=== PATIENT | male | born 1940 | race Caucasian/White ===

== ENCOUNTER 2017-09-29 05:00 | Inpatient (IN) ==
[2017-09-29] MEDS ORDERED: Aspirin 81 MG TAB.CHEW PO ONE (05:01)
[2017-09-29] MEDS ORDERED: Nitroglycerin 0.4 MG TAB.SUBL SL ONE (05:01)
[2017-09-29 05:25] LABS: Basophils # 0.1 K/mcL (0.0-0.2); Basophils % 0.8 %; Eosinophils # 0.4 K/mcL (0.0-0.6); Eosinophils % 3.8 %; Hemoglobin 13.6 g/dL (12.9-16.9); Immature Granulocytes % 0.3 % (0-4); Lymphocytes # 1.5 K/mcL (0.6-4.6); Lymphocytes % 13.8 %; Mean Corpuscular HGB Conc 33.2 g/dL (31.6-35.5); Mean Corpuscular Hemoglobin 30.2 pg (28.0-33.3); Mean Corpuscular Volume 90.9 fL (83.0-100.0); Monocytes # 0.6 K/mcL (0.0-1.3); Monocytes % 5.6 %; Neutrophils # 7.9 K/mcL (1.6-8.9); Platelet Count 285 K/mcL (140-400); Red Blood Count 4.51 M/mcL (4.19-5.50); Red Cell Distribution Width 13.7 % (11.5-14.5); Segmented Neutrophils % 75.7 %
[2017-09-29 05:32] LABS: INR 1.1; Prothrombin Time 11.6 Seconds (9.4-12.1)
[2017-09-29 05:44] LABS: BUN/Creatinine Ratio 19 (6-26); Blood Urea Nitrogen 22 mg/dL (8-23); Calcium 9.1 mg/dL (8.6-10.3); Carbon Dioxide 21 mEq/L (23-29); Chloride 108 mEq/L (98-107); Glucose 121 mg/dL (70-105); Lipase 13 Units/L (11-82); Osmolality,Calculated 293 (280-300); Potassium 4.1 mEq/L (3.5-5.1); Sodium 139 mEq/L (136-145); Troponin I < 0.03 ng/mL (< 0.04); eGFR For African Americans > 60 (> 60); eGFR For Non-African Americans > 60 (> 60)
--- NOTE | 2017-09-29 05:47 | Emergency Department Note ---
Disposition Clinical Impression: Chest pain Qualifiers: Chest pain type: unspecified Qualified Code(s): R07.9 - Chest pain, unspecified Disposition: Admitted As Inpatient Condition: Good Referrals: Fabby Parmar CNP [Primary Care Provider] - Forms: ED Satisfaction Letter Time of Disposition: 06:41 General Adult HPI - General Chief complaint: ED Chest Pain Stated complaint: CP Time Seen by Provider: 09/29/17 05:01 Source: patient, family Limitations: no limitations Nursing Notes Reviewed: Yes Vital Signs Reviewed: Yes - History of Present Illness HPI Narrative: Patient woke up around 2 AM. States he felt very lightheaded. Thought He was going to pass out. Likens this to feeling that he was going to . Also reporting chest pain in the center of his chest. Did take one nitroglycerin and a full aspirin. States the nitroglycerin helped ease the chest pain. States this chest pain is gone now at this time. Still feeling fatigued. Pain Scale: 0 - Related Data Home Medications Medication Instructions Recorded Confirmed Aspirin 81 mg PO DAILY 04/04/16 09/29/17 Benazepril HCl [Lotensin] 40 mg PO BID 04/04/16 09/29/17 Carvedilol 12.5 mg PO BID 04/04/16 09/29/17 Clopidogrel [Plavix] 75 mg PO DAILY 04/04/16 09/29/17 Famotidine [Heartburn Prevention] 20 mg PO BID 04/04/16 09/29/17 Furosemide [Lasix] 20 mg PO DAILY 04/04/16 09/29/17 Nitroglycerin [Nitrostat] 0.4 mg SL AD PRN 04/04/16 09/29/17 amLODIPine [Norvasc] 5 mg PO DAILY 04/04/16 09/29/17 [place]-3/Dha/Epa/Fish Oil [Fish Oil 1 each PO DAILY 11/11/16 09/29/17 1,000 mg Softgel] Cholecalciferol (Vitamin D3) 5,000 unit PO DAILY 09/29/17 09/29/17 [Vitamin D] Vitamin E 400 unit PO DAILY 09/29/17 09/29/17 Allergies Allergy/AdvReac Type Severity Reaction Status Date / Time Ggi[place]ock-Tmt-Ulw Reductase Allergy Rash Verified 04/04/16 12:57 Inhibitor [Statins] Penicillins AdvReac Nausea Verified 04/04/16 12:57 steroids AdvReac Irritable Uncoded 11/11/16 07:41 All systems ED: reviewed and negative except as stated. Constitutional: Denies: fever, chills ENT ED: Denies: congestion Cardiovascular: Reports: chest pain. Denies: palpitations, dyspnea on exertion , syncope Respiratory: Denies: cough, dyspnea Gastrointestinal: Reports: abdominal pain (Occasional not this time). Denies: nausea, vomiting, diarrhea, hematemesis, melena, hematochezia Past Medical History - Past Medical History Attestation: Yes The following information was validated with the patient. Source: patient Medical history: Reports: arthritis, COPD, coronary artery disease, GERD, hypertension, myocardial infarction, other Surgical history: Reports: appendectomy, coronary bypass (CABG) Psychiatric history: Reports: no psych history - Social History Smoking Status: Former smoker Alcohol use: Reports: none Drug use: Reports: none Physical Exam - General Limitations: no limitations General appearance: alert, in no apparent distress - Head Head exam: atraumatic, normocephalic, normal inspection - Eye Eye exam: Present: normal appearance, PERRL, EOMI - ENT ENT exam: normal exam, normal oropharynx, mucous membranes moist - Neck Neck exam: Present: normal inspection, full ROM, trachea midline - Chest Chest inspection: Present: normal inspection, symmetric chest wall rise - Respiratory Respiratory exam: Present: normal lung sounds bilaterally. Absent: respiratory distress, accessory muscle use - Cardiovascular Cardiovascular exam: Present: regular rate, normal rhythm, normal heart sounds - Abdominal Exam Abdominal exam: Present: soft, Non-Tender. Absent: tenderness, distention, guarding, rebound, rigidity - Extremities Exam Extremities exam: Present: normal inspection, full ROM. Absent: tenderness, pedal edema - Back Exam Back exam: Present: normal inspection, full ROM. Absent: tenderness - Neurological Exam Neurological exam: Present: alert, oriented X3 - Psychiatric Psychiatric exam: Present: normal affect, normal mood - Skin Skin exam: Present: warm, dry, intact, normal color. Absent: rash, cyanosis, diaphoresis Course Course Narrative: Male patient presenting to the emergency department complaining of an episode of chest pain. He states this all started around 245 this morning. He woke up from sleep and sit up. States that he felt like he was "going to ." I questioned him as if he felt like he was going to pass out or was lightheaded he stated yes however he did feel like he was actually going to . Patient states that he was dizzy on awakening and had some ringing in his ears. He denies overuse of aspirin. States he does take a baby aspirin every day he was also given a full aspirin while he was at home. Patient does have a cardiac history inclusive of a CABG with a stent placed afterwards. He subsequently had another cardiac catheter and was told that the stents had "collapsed." Patient sees Dr. Gtz here. Patient states he did end up noticing that he had a substernal chest pain. He states it did not radiate anywhere. No associated shortness of breath. Patient reports that he was not feeling well yesterday and he was more tired than normal. He states he ended up going to sleep early due to his fatigue. He denies any nausea vomiting or abdominal pain. He does state he has a history of acid reflux and has been taking Pepcid. This is helped his abdominal pain. He has no pain at this time. She also denies any chest pain currently. He is resting comfortably. Lung sounds are clear heart tones are normal. He does have a midsternal scar. Patient is a high-risk cardiac patient is CABG and stents. Patient's troponin is negative and chest x-ray is normal. We will admit patient for ACS rule out. - Reevaluation(s) Reevaluation #1: While in the room discussing admission with the patient he states he is having chest pain again. We did a repeat EKG. It shows a sinus bradycardia at a rate of 58. MD interval is 161. Castration is 139. QT is 488. QTC is 484. Patient has the right bundle branch block that was discussed on the previous EKG. No findings suggestive of a acute ST elevation. We will place an inch of Nitropaste on the patient and admit him. Time: 06:39 - Consultations Consultation #1: Pt accepeted by Dr Dubon in stable condition. Time: 06:38 Vital Signs Temperature 97.7 F 09/29/17 05:01 Pulse Rate 65 09/29/17 05:01 Respiratory Rate 20 09/29/17 05:01 Blood Pressure 171/99 09/29/17 05:01 O2 Sat by Pulse Oximetry 97 09/29/17 05:01 Temperature 97.7 F 09/29/17 05:01 Pulse Rate 60 09/29/17 06:30 Respiratory Rate 18 09/29/17 06:30 Blood Pressure 137/70 09/29/17 06:30 O2 Sat by Pulse Oximetry 96 09/29/17 06:30 Oxygen Delivery Oxygen Delivery Room Air Medical Decision Making - Medical Records Medical records reviewed: Yes I reviewed the patient's medical records. - Lab Data Lab results reviewed: Yes I reviewed the patient's lab results. Result diagrams: 09/29/17 05:10 09/29/17 05:10 Lab Results 09/29/17 09/29/17 09/29/17 Range/Units 05:10 05:10 05:10 WBC 10.5 (4.3-11.1) K/mcL RBC 4.51 (4.19-5.50) M/mcL Hgb 13.6 (12.9-16.9) g/dL Hct 41.0 (37.5-50.1) % MCV 90.9 (83.0-100.0) fL MCH 30.2 (28.0-33.3) pg MCHC 33.2 (31.6-35.5) g/dL RDW 13.7 (11.5-14.5) % Plt Count 285 (140-400) K/mcL MPV 11.0 (9.4-12.4) fL Immature Gran % 0.3 (0-4) % Seg Neutrophils % 75.7 % Lymphocytes % 13.8 % Monocytes % 5.6 % Eosinophils % 3.8 % Basophils % 0.8 % Neutrophils # 7.9 (1.6-8.9) K/mcL Lymphocytes # 1.5 (0.6-4.6) K/mcL Monocytes # 0.6 (0.0-1.3) K/mcL Eosinophils # 0.4 (0.0-0.6) K/mcL Basophils # 0.1 (0.0-0.2) K/mcL PT 11.6 (9.4-12.1) Seconds INR 1.1 APTT 29.0 (26.0-36.0) Seconds Sodium (136-145) mEq/L Potassium (3.5-5.1) mEq/L Chloride (98-107) mEq/L Carbon Dioxide (23-29) mEq/L BUN (8-23) mg/dL Creatinine (0.70-1.30) mg/dL Est GFR ( Amer) (> 60) Est GFR (Non-Af Amer) (> 60) BUN/Creatinine Ratio (6-26) Glucose (70-105) mg/dL Calculated Osmolality (280-300) Calcium (8.6-10.3) mg/dL Troponin I (< 0.04) ng/mL B-Natriuretic Peptide 47 (Less than 100) pg/mL Lipase (11-82) Units/L 09/29/17 Range/Units 05:10 WBC (4.3-11.1) K/mcL RBC (4.19-5.50) M/mcL Hgb (12.9-16.9) g/dL Hct (37.5-50.1) % MCV (83.0-100.0) fL MCH (28.0-33.3) pg MCHC (31.6-35.5) g/dL RDW (11.5-14.5) % Plt Count (140-400) K/mcL MPV (9.4-12.4) fL Immature Gran % (0-4) % Seg Neutrophils % % Lymphocytes % % Monocytes % % Eosinophils % % Basophils % % Neutrophils # (1.6-8.9) K/mcL Lymphocytes # (0.6-4.6) K/mcL Monocytes # (0.0-1.3) K/mcL Eosinophils # (0.0-0.6) K/mcL Basophils # (0.0-0.2) K/mcL PT (9.4-12.1) Seconds INR APTT (26.0-36.0) Seconds Sodium 139 (136-145) mEq/L Potassium 4.1 (3.5-5.1) mEq/L Chloride 108 H (98-107) mEq/L Carbon Dioxide 21 L (23-29) mEq/L BUN 22 (8-23) mg/dL Creatinine 1.17 (0.70-1.30) mg/dL Est GFR ( Amer) > 60 (> 60) Est GFR (Non-Af Amer) > 60 (> 60) BUN/Creatinine Ratio 19 (6-26) Glucose 121 H (70-105) mg/dL Calculated Osmolality 293 (280-300) Calcium 9.1 (8.6-10.3) mg/dL Troponin I < 0.03 (< 0.04) ng/mL B-Natriuretic Peptide (Less than 100) pg/mL Lipase 13 (11-82) Units/L - Radiology Data Radiology results reviewed: Yes I reviewed the patient's radiology results. - EKG Data EKG #1 EKG attestation: Yes I reviewed and interpreted this EKG. EKG results narrative: Normal sinus rhythm at a rate of 63. MD interval is 198. Castration is 140. QT is 471. QTC is 478. Patient does have a right bundle branch block. This was on the previous EKG. No signs of acute ischemia. No significant change from the previous EKG dated 11/29/2013. EKG #2 EKG attestation: Yes I reviewed and interpreted this EKG. EKG results narrative: sinus bradycardia at a rate of 58. MD interval is 161. Castration is 139. QT is 488. QTC is 484. Patient has the right bundle branch block that was discussed on the previous EKG. No findings suggestive of a acute ST elevation. Attestation Statement - Attestation Attestation: I examined this patient and my medical decision-making was reviewed with the Resident Physician. I agree with the documented findings, disposition and treatment plan as described except to the extent set forth below. Chest pain, history of significant coronary artery disease. Pain was atypical from previous episodes of pain. Patient has several previous stents. He is medically maximized however pain today was associated with impending doom. Patient will be admitted for further management and started on nitroglycerin. Patient did take asa at home.
[2017-09-29] MEDS ORDERED: Ondansetron 4 MG/2 ML VIAL IVP STA (06:24)
[2017-09-29] MEDS ORDERED: Nitroglycerin 1 INCH/GM PACKET TP ONE (06:36)
[2017-09-29] MEDS ORDERED: Acetaminophen 325 MG TABLET PO PRN (06:36)
[2017-09-29] MEDS ORDERED: Naloxone 0.4 MG/ML INJ IVP PRN ×2 (06:36→08:06)
[2017-09-29] MEDS ORDERED: Nitroglycerin 0.4 MG TAB.SUBL SL PRN (08:08)
--- NOTE | 2017-09-29 08:15 | Internal Med History&Physical ---
Date of Encounter: 09/29/17 Time of Encounter: 08:12 Internal Medicine - H&P: HPI Chief complaint: chest pain Admitted From: Emergency Dept Plans for Post Hospital Care: Home History of present illness: Mr. Urban is a 76 year old male background history of hypertension, coronary artery disease, previous myocardial infarction, previous coronary artery bypass graft, underwent cardiac catheterization in 2017. Patient woke up at 2 in the morning and was complaining of excruciating pain on his left side of the chest. This pain was left precordial region in terms of location and was radiating to his jaw along with the left arm. Patient claims that he felt like he is going to pass out. Patient was concerned about this sudden onset of pain and that was the reason he decided for further evaluation. Patient denies shortness of breath, nausea, vomiting, abdominal pain, dizziness and diarrhea. Workup in the emergency room: Basic labs were drawn. Chest x-ray was done. Heart score: 4 Reason for admission: Chest pain to rule out ACS and a very high risk patient. Family history: Noncontributory Past Med Surg Social Fam HX - Past Medical History Medical history: arthritis, COPD, coronary artery disease, GERD, hypertension, myocardial infarction, other Psychiatric history: no psych history - Past Surgical History Surgical History: appendectomy, coronary bypass (CABG) - Social History Smoking Status: Former smoker Alcohol use: none Drug use: none Internal Medicine - H&P: Meds Aspirin 81 mg PO DAILY 04/04/16 [History] Benazepril HCl [Lotensin] 40 mg PO BID 04/04/16 [History] Carvedilol 12.5 mg PO BID 04/04/16 [History] Clopidogrel [Plavix] 75 mg PO DAILY 04/04/16 [History] Famotidine [Heartburn Prevention] 20 mg PO BID 04/04/16 [History] Furosemide [Lasix] 20 mg PO DAILY 04/04/16 [History] Nitroglycerin [Nitrostat] 0.4 mg SL AD PRN 04/04/16 [History] amLODIPine [Norvasc] 5 mg PO DAILY 04/04/16 [History] [place]-3/Dha/Epa/Fish Oil [Fish Oil 1,000 mg Softgel] 1 tab PO DAILY 11/11/16 [ History] Cholecalciferol (Vitamin D3) [Vitamin D] 5,000 unit PO DAILY 09/29/17 [History] Vitamin E 400 unit PO DAILY 09/29/17 [History] 3 Allergy/AdvReac Type Severity Reaction Status Date / Time Dnkzpsb-Msp-Uiw Reductase Allergy Rash Verified 09/29/17 06:58 Inhibitor [Statins] Penicillins AdvReac Nausea Verified 09/29/17 06:58 steroids AdvReac Irritable Uncoded 11/11/16 07:41 All Systems PM: A 10-system review of systems was performed and is negative for pertinent findings except as documented above in the HPI. - Constitutional Constitutional: no chills, no fever(s), no night sweats - EENT Eyes: no change in vision, no discharge, no pain, no photophobia Ears: no ear discharge, no ear pain, no tinnitus Nose, mouth and throat: no dysphagia, no nasal discharge, no neck pain, no sore throat - Cardiovascular Cardiovascular ROS IM: chest pain, no diaphoresis, no dyspnea, no lightheadedness, no palpitations, no syncope - Respiratory Respiratory: no cough, no dyspnea, no wheezing, no excessive phlegm production - Gastrointestinal Gastrointestinal: no abdominal pain, no diarrhea, no hematemesis, no hematochezia, no melena, no nausea, no vomiting - Musculoskeletal Musculoskeletal ROS IM: no numbness, no tingling - Integumentary Integumentary IM: no rash, no unusual bruising - Neurological Neurological ROS: no confusion, no convulsions, no focal weakness, no numbness, no tingling, no tremor(s) - Hematologic/Lymphatic Hematologic/Lymphatic: no easy bruising - Constitutional Vitals: Temp Pulse Resp BP Pulse Ox 97.7 F 58 14 142/73 92 09/29/17 05:01 09/29/17 06:59 09/29/17 07:32 09/29/17 07:32 09/29/17 06:59 General appearance: Present: A&O X 3, pleasant, no acute distress, answers questions appropriately - Head Head exam: Present: atraumatic, normocephalic - Eye Eye exam: Present: PERRL, conjuntiva pink, sclera anicteric Pupils: Present: PERRL - Neck Neck exam general surgery: Present: supple, trachea midline. Absent: lymphadenopathy - Respiratory Respiratory exam: Present: CTAB. Absent: accessory muscle use, rales, rhonchi, wheezes - Cardiovascular Cardiovascular exam: Present: RRR, +S1, +S2. Absent: diastolic murmur, gallop, rubs, systolic murmur - GI/Abdominal GI/Abdominal exam: Present: normal bowel sounds, soft, no peritoneal signs. Absent: distended, tenderness - Extremities Exam Extremities exam: Present: warm, radial pulses palpable and symmetrical. Absent : calf tenderness, cyanotic, pedal edema - Neurological Exam Neurological exam: Present: CN II-XII intact, oriented X3, no focal deficits. Absent: pronater drift, facial droop, speech deficit - Skin Skin exam: Present: dry, intact Internal Med - H&P Results - Labs CBC & Chem 7: 09/29/17 05:10 09/29/17 05:10 - Assessment and plan (1) Chest pain Current Visit: Yes Status: Acute Assessment and plan: 76/male Admitted with chest pain. CASH score: 3. Assessment: Chest pain to rule out ACS. Complex previous cardiac. Sanchez: Admit as observation. Cardiac diet. Cycle troponin. Echocardiogram. Labs tomorrow morning. Aspirin/beta blockers/statin/nitroglycerin. Please consider long-term nitroglycerin if appropriate Please consider cardiology evaluation if any of the tests are abnormal. I have examined this patient in the emergency department room #21. Patient's significant other was at bedside. Plan of care explained to the patient and his significant other. They verbalize understanding. Qualifiers: Chest pain type: precordial pain Qualified Code(s): R07.2 - Precordial pain (2) Coronary artery disease Current Visit: Yes Status: Acute Assessment and plan: Patient is known to have a coronary artery bypass graft surgery in year 1999. He underwent cardiac catheterization in 2017. There stents placed in his bypass graft. Qualifiers: Coronary Disease-Associated Artery/Lesion type: bypass graft [place] vs. transplanted heart: pala heart Associated angina: with stable angina Qualified Code(s): I25.708 - Atherosclerosis of coronary artery bypass graft(s) , unspecified, with other forms of angina pectoris (3) Hypertension Current Visit: Yes Status: Acute Assessment and plan: Patient is known to have essential hypertension. At the point of examination his blood pressure is acceptable range. We will resume his home medication for hypertension. We will closely monitor his blood pressure throughout this hospital stay. Qualifiers: Hypertension type: essential hypertension Qualified Code(s): I10 - Essential (primary) hypertension (4) COPD (chronic obstructive pulmonary disease) Current Visit: Yes Status: Acute Assessment and plan: And is a long-term smoker. Patient is known to have a stable COPD. At this point is not in exacerbation. We will closely monitor his respiratory status. Qualifiers: COPD type: unspecified COPD Qualified Code(s): J44.9 - Chronic obstructive pulmonary disease, unspecified (5) DVT prophylaxis Current Visit: Yes Status: Acute Assessment and plan: Lovenox Medical decision making: This patient has a moderate to severe risk of worsening in spite of being on appropriate medication due to the underlying chronic complex medical condition. - Time Spent With Patient Total time spent is greater than 50% in coordination of care (as documented) at patient's floor/unit and/or counseling patient:
[2017-09-29] MEDS ORDERED: Lisinopril 20 MG TABLET PO SCH (09:00)
[2017-09-29] MEDS ORDERED: Famotidine 20 MG TABLET PO SCH (09:00)
[2017-09-29] MEDS ORDERED: amLODIPine 5 MG TABLET PO SCH (09:00)
[2017-09-29] MEDS ORDERED: NON-FORMULARY MEDICATION 1 EACH EACH (Omega-3/Dha/Epa/Fish Oil [Fish Oil 1,000 Mg Softgel] PO SCH (09:00)
[2017-09-29] MEDS: Aspirin 81 MG TAB.CHEW PO SCH (10:10)
[2017-09-29] MEDS: Furosemide 20 MG TABLET PO SCH (10:11)
[2017-09-29] MEDS: Cholecalciferol (D-3) 1,000 UNIT TABLET PO SCH (10:12)
[2017-09-29] MEDS: Famotidine 20 MG TABLET PO SCH (10:12)
[2017-09-29] MEDS: amLODIPine 5 MG TABLET PO SCH (20:20)
[2017-09-30] MEDS ORDERED: *HR* Heparin 5,000 UNIT/ML VIAL IVP ONE (00:28)
[2017-09-30] MEDS ORDERED: *HR* Heparin 5,000 UNIT/ML VIAL IVP PRN ×2 (00:28)
--- NOTE | 2017-09-30 00:31 | Event Note ---
Date of Encounter: 09/30/17 Time of Encounter: 00:30 Patient here with chest pain. Was paged about trop of .38. Previously normal x3. No chest pain currently. Will start heparin drip. NPO. repeat trop 6 hours from now. c/s cardiology. Patient is on ASA/plavix/BB
[2017-09-30 01:00] LABS: Hematocrit 37.9 % (37.5-50.1); Hemoglobin 12.6 g/dL (12.9-16.9); Mean Corpuscular HGB Conc 33.2 g/dL (31.6-35.5); Mean Corpuscular Hemoglobin 30.3 pg (28.0-33.3); Mean Corpuscular Volume 91.1 fL (83.0-100.0); Mean Platelet Volume 11.1 fL (9.4-12.4); Platelet Count 243 K/mcL (140-400); Red Blood Count 4.16 M/mcL (4.19-5.50); Red Cell Distribution Width 13.6 % (11.5-14.5)
[2017-09-30 01:09] LABS: INR 1.1; Prothrombin Time 12.1 Seconds (9.4-12.1)
[2017-09-30 01:11] LABS: Activated Partial Thrombo Time 29.7 Seconds (26.0-36.0)
[2017-09-30] MEDS: Heparin 25,000 UNIT/500 ML D5W 25,000 UNIT/500 ML BAG IVC SCH (01:14)
[2017-09-30] MEDS ORDERED: *HR* Enoxaparin 40 MG/0.4 ML SYRINGE SQ SCH (06:00)
[2017-09-30] MEDS ORDERED: *HR* Enoxaparin 30 MG/0.3 ML SYRINGE SQ SCH (06:00)
[2017-09-30 06:13] LABS: Basophils # 0.1 K/mcL (0.0-0.2); Basophils % 0.9 %; Eosinophils # 0.5 K/mcL (0.0-0.6); Eosinophils % 7.4 %; Hematocrit 38.7 % (37.5-50.1); Hemoglobin 12.7 g/dL (12.9-16.9); Immature Granulocytes % 0.3 % (0-4); Lymphocytes # 2.3 K/mcL (0.6-4.6); Lymphocytes % 35.5 %; Mean Corpuscular HGB Conc 32.8 g/dL (31.6-35.5); Mean Corpuscular Hemoglobin 30.4 pg (28.0-33.3); Mean Corpuscular Volume 92.6 fL (83.0-100.0); Mean Platelet Volume 11.5 fL (9.4-12.4); Monocytes # 0.5 K/mcL (0.0-1.3); Monocytes % 7.7 %; Neutrophils # 3.1 K/mcL (1.6-8.9); Platelet Count 224 K/mcL (140-400); Red Blood Count 4.18 M/mcL (4.19-5.50); Red Cell Distribution Width 13.8 % (11.5-14.5); Segmented Neutrophils % 48.2 %
--- NOTE | 2017-09-30 06:35 | Electrocardiograph Report ---
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
--- NOTE | 2017-09-30 06:36 | Electrocardiograph Report ---
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
[2017-09-30 06:38] LABS: Alanine Aminotransferase 13 Units/L (7-52); Albumin 3.5 g/dL (3.5-5.7); Albumin/Globulin Ratio 1.3 (1.1-2.2); Alkaline Phosphatase 60 Units/L (34-104); Aspartate Amino Transferase 14 Units/L (13-39); BUN/Creatinine Ratio 15 (6-26); Bilirubin,Total 0.5 mg/dL (0.3-1.0); Blood Urea Nitrogen 17 mg/dL (8-23); Calcium 8.5 mg/dL (8.6-10.3); Carbon Dioxide 26 mEq/L (23-29); Chloride 109 mEq/L (98-107); Chol/HDL Ratio 5.7 (0-4.9); Cholesterol 183 mg/dL (< 200); Globulin 2.6 g/dL (2.4-3.5); Glucose 100 mg/dL (70-105); HDL Cholesterol 32 mg/dL (40-59); LDL Cholesterol,Calculated 129 mg/dL (0-99); Osmolality,Calculated 296 (280-300); Phosphorous 3.4 mg/dL (2.7-4.5); Potassium 3.6 mEq/L (3.5-5.1); Sodium 142 mEq/L (136-145); Total Protein 6.1 g/dL (6.4-8.9); Triglycerides 108 mg/dL (< 150); eGFR For African Americans > 60 (> 60); eGFR For Non-African Americans > 60 (> 60)
[2017-09-30 07:41] LABS: INR 1.1; Prothrombin Time 12.1 Seconds (9.4-12.1)
[2017-09-30 07:44] LABS: Activated Partial Thrombo Time 71.2 Seconds (26.0-36.0)
[2017-09-30] MEDS: Famotidine 20 MG TABLET PO SCH (09:13)
[2017-09-30] MEDS: Furosemide 20 MG TABLET PO SCH (09:13)
[2017-09-30] MEDS: Aspirin 81 MG TAB.CHEW PO SCH (09:13)
[2017-09-30] MEDS: Lisinopril 20 MG TABLET PO SCH (09:13)
[2017-09-30] MEDS: Cholecalciferol (D-3) 1,000 UNIT TABLET PO SCH (09:13)
--- NOTE | 2017-09-30 09:31 | Internal Med Progress Note ---
Date of Encounter: 09/30/17 Time of Encounter: 09:29 - Assessment and plan (1) Chest pain Current Visit: Yes Status: Acute Assessment and plan: Denied any more CP His trop peaked at @ 0.38 Now trending down No ischemic changes on EKG He does have intermittent CP for a while now He would get benefit with [facility] since he is high risk pt with tripple vessel disease Cont heparin gtt for now Cont ASA, Plavix, BB and ACEI Cont NPO until card eval Patient does need to stay in the hospital more than 2 midnights due to his complex medical problem. So we will change him to full admission today. I did review my colleague Dr. Stiles's H & P including HPI, PMH, PSH, FH, SH, and ROS no changes noticed Qualifiers: Chest pain type: precordial pain Qualified Code(s): R07.2 - Precordial pain (2) NSTEMI (non-ST elevated myocardial infarction) Current Visit: Yes Status: Acute (3) Coronary artery disease Current Visit: Yes Status: Acute Assessment and plan: Patient is known to have a coronary artery bypass graft surgery in year 1999. He underwent cardiac catheterization in 2017. There stents placed in his bypass graft resumed all home meds Qualifiers: Coronary Disease-Associated Artery/Lesion type: bypass graft [place] vs. transplanted heart: [place] heart Associated angina: with stable angina Qualified Code(s): I25.708 - Atherosclerosis of coronary artery bypass graft(s) , unspecified, with other forms of angina pectoris (4) Hypertension Current Visit: Yes Status: Acute Assessment and plan: stable with current meds resumed all home meds Qualifiers: Hypertension type: essential hypertension Qualified Code(s): I10 - Essential (primary) hypertension (5) DVT prophylaxis Current Visit: Yes Status: Acute Assessment and plan: on heparin gtt (6) COPD (chronic obstructive pulmonary disease) Current Visit: Yes Status: Acute Assessment and plan: chronic COPD. not in exacerbation. cont home INH regimen Qualifiers: COPD type: unspecified COPD Qualified Code(s): J44.9 - Chronic obstructive pulmonary disease, unspecified - Time Spent With Patient Total time spent is greater than 50% in coordination of care (as documented) at patient's floor/unit and/or counseling patient: - Subjective Interval history: Mr. Urban is a 76 year old male background history of hypertension, coronary artery disease, previous myocardial infarction, previous coronary artery bypass graft, underwent cardiac catheterization in 2017 showed tripple vessel disease, s/p CABG 2/4 patent bypass grafts pt now presented to ER y/d with Left side chest pain radiating to his shoulder and back. He did c/o intermittent CP lately from last 2-3 months. 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 Checked his serial troponin, which peaked at 0.38. He denied any active CP now. Currently on Heparin gtt. No N/V. No SOB - Constitutional Vitals: Temp Pulse Resp BP Pulse Ox 97.5 F L 60 17 157/77 97 09/30/17 07:42 09/30/17 07:42 09/30/17 07:42 09/30/17 07:42 09/30/17 09:17 General appearance: Present: A&O X 3, pleasant, no acute distress, answers questions appropriately - Head Head exam: Present: atraumatic, normal inspection - Neck Neck exam general surgery: Present: supple - Respiratory Respiratory exam: Present: decreased breath sounds. Absent: rales, respiratory distress, rhonchi, wheezes - Cardiovascular Cardiovascular exam: Present: RRR, +S1, +S2. Absent: tachycardia - GI/Abdominal GI/Abdominal exam: Present: soft. Absent: rebound, rigid - Extremities Exam Extremities exam: Absent: calf tenderness, pedal edema, tenderness - Back Exam Back exam: Absent: CVA tenderness (L), CVA tenderness (R) - Neurological Exam Neurological exam: Present: alert, oriented X3 - Psychiatric Psychiatric exam: Present: normal affect, normal mood - Skin Skin exam: Absent: rash Internal Medicine: Result - Labs CBC & Chem 7: 09/30/17 05:19 09/30/17 05:19 Labs: Short CBC 09/30/17 09/30/17 Range/Units 00:40 05:19 WBC 6.8 6.5 (4.3-11.1) K/mcL Hgb 12.6 L 12.7 L (12.9-16.9) g/dL Hct 37.9 38.7 (37.5-50.1) % Plt Count 243 224 (140-400) K/mcL Neutrophils # 3.1 (1.6-8.9) K/mcL BMP 09/30/17 05:19 Sodium 142 Potassium 3.6 Chloride 109 H Carbon Dioxide 26 BUN 17 Creatinine 1.15 Glucose 100 Calcium 8.5 L Cardiac Enzymes 09/29/17 09/29/17 09/29/17 Range/Units 10:59 16:41 23:18 Troponin I < 0.03 0.03 0.38 H* (< 0.04) ng/mL 09/30/17 Range/Units 05:19 Troponin I 0.04 H* (< 0.04) ng/mL Liver Function 09/30/17 Range/Units 05:19 Total Bilirubin 0.5 (0.3-1.0) mg/dL AST 14 (13-39) Units/L ALT 13 (7-52) Units/L Alkaline Phosphatase 60 (34-104) Units/L Albumin 3.5 (3.5-5.7) g/dL - ABG Interpretation ABG results: PT/INR, D-dimer PT 12.1 Seconds (9.4-12.1) 09/30/17 07:14 - Impressions Impressions Echocardiogram 09/29/17 08:09 Impressions: LVEF 65-70%. Mild pulmonary hypertension. Mild left ventricular diastolic dysfunction. No significant valvular dysfunction. Left Ventricular Wall Motion: Rest Echo Findings The apex, apical inferior, mid inferior, basal inferior, apical anterior, mid anterior, basal anterior, apical septal, mid inferior septal, basal inferior septal, apical lateral, mid anterior lateral, basal anterior lateral, mid anterior septal, mid inferior lateral, basal anterior septal and basal inferior lateral marx were hyperkinetic. Findings: Study Quality * Technically adequate exam. Right Ventricle * Normal right ventricular structure and function. Right Atrium * Normal right atrial size. Interatrial Septum * No evidence of PFO by color Doppler. Aorta * Normally sized aortic root. Pericardium * The pericardium appears normal. Left Atrium * Mildly dilated left atrium. Tricuspid Valve * No tricuspid stenosis. * Mild tricuspid regurgitation. * Estimated RVSP is 36 mmHg. * Mild pulmonary hypertension. Pulmonic Valve * No pulmonic stenosis. * Mild pulmonic regurgitation. Aortic Valve * Trileaflet aortic valve. * Moderately calcified aortic valve leaflets. * No aortic regurgitation. * No aortic stenosis. Left Ventricle * LVEF 65-70%. * Mild left ventricular diastolic dysfunction. Mitral Valve * No mitral stenosis. * Trace mitral regurgitation. * Mildly calcified mitral valve leaflets. IVC * Normal IVC dimensions and inspiratory collapse. Consult Discharge Plan - Plan Referrals: Fabby Parmar, INSERTER OPERATOR [Primary Care Provider] -
[2017-09-30] MEDS: amLODIPine 5 MG TABLET PO SCH (21:41)
[2017-10-01] MEDS: Heparin 25,000 UNIT/500 ML D5W 25,000 UNIT/500 ML BAG IVC SCH (01:03)
[2017-10-01 05:24] LABS: Basophils # 0.1 K/mcL (0.0-0.2); Basophils % 0.8 %; Eosinophils # 0.4 K/mcL (0.0-0.6); Eosinophils % 6.9 %; Hematocrit 39.9 % (37.5-50.1); Immature Granulocytes % 0.2 % (0-4); Lymphocytes % 31.7 %; Mean Corpuscular HGB Conc 32.6 g/dL (31.6-35.5); Mean Corpuscular Hemoglobin 29.9 pg (28.0-33.3); Mean Corpuscular Volume 91.7 fL (83.0-100.0); Monocytes # 0.6 K/mcL (0.0-1.3); Monocytes % 8.7 %; Neutrophils # 3.3 K/mcL (1.6-8.9); Platelet Count 233 K/mcL (140-400); Red Blood Count 4.35 M/mcL (4.19-5.50); Red Cell Distribution Width 13.6 % (11.5-14.5); Segmented Neutrophils % 51.7 %
[2017-10-01 05:48] LABS: BUN/Creatinine Ratio 16 (6-26); Blood Urea Nitrogen 21 mg/dL (8-23); Carbon Dioxide 27 mEq/L (23-29); Chloride 107 mEq/L (98-107); Glucose 111 mg/dL (70-105); Osmolality,Calculated 298 (280-300); Potassium 3.5 mEq/L (3.5-5.1); Sodium 142 mEq/L (136-145); eGFR For African Americans > 60 (> 60); eGFR For Non-African Americans 54 (> 60)
[2017-10-01] MEDS: Famotidine 20 MG TABLET PO SCH (08:29)
[2017-10-01] MEDS: Lisinopril 20 MG TABLET PO SCH (08:29)
[2017-10-01] MEDS: Cholecalciferol (D-3) 1,000 UNIT TABLET PO SCH (08:30)
[2017-10-01] MEDS: Furosemide 20 MG TABLET PO SCH (08:30)
[2017-10-01] MEDS: Aspirin 81 MG TAB.CHEW PO SCH (08:30)
--- NOTE | 2017-10-01 10:07 | Cardiology Consult Note ---
Date of Encounter: 10/01/17 Time of Encounter: 09:30 Assessment and Plan (1) Elevated troponin Current Visit: Yes Status: Acute Patient presents with multiple nonspecific symptoms not typical for coronary ischemia. However, troponin noted to be elevated at 0.38. Patient has known CAD, prior bypass. Most recent heart catheterization in October 2016 demonstrated 2 out of 4 patent bypass grafts. He has otherwise significant [place] coronary disease. Troponin elevation may represent demand ischemia in this setting or possibly an acute coronary event. Patient is hemodynamically stable. He is on heparin. Recommend reviewing most recent [facility] films with interventional cardiology before considering proceeding with heart catheterization. Continue aspirin, heparin drip, beta vandana. Patient intolerant to statins. He is open to trying adding Imdur. Plan discussed with patient. Discussion w patient/family: The assessment and plan as outlined above was discussed with the patient and/or family members who expressed understanding and agreement. All questions were answered. Thank you for involving us in the care of your patient. Please call with any questions. History of Present Illness Consult date: 10/01/17 Requesting physician: Nivia Moore Consult reason: Elevated troponin Chief complaint: Chest pain, nausea, fatigue History of present illness: Mr. Urban is a 76 year old male presenting with multiple nonspecific complaints. 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 Yesterday evening, he developed "pains" over his left chest and felt nauseated. This occurred during rest. He states that he went to lay down, fell asleep and awoke somewhere around 2 AM with similar symptoms in addition to dizziness. He subsequently presented to the emergency room. Upon presentation, patient's troponin noted to be elevated at 0.38. Chest x- ray unremarkable. An echo performed demonstrated preserved LV systolic function , EF 65-70%. At the bedside, the patient reports intermittent occasional left- sided pains since admission. He has been started on heparin. He is on aspirin and beta vandana. He has a reported intolerance to statins. He also reports an intolerance to Ranexa which he believes was constipation. He was taking Imdur as well but stopped it but he's not quite sure why he did. He denies palpitations, syncope, lower extremity edema. He is known to the outpatient [place] cardiology office last seen 09/15/2017. He has a history of CAD and prior bypass. His most recent heart catheterization was in October 2016 demonstrating 2 out of 4 patent bypass grafts. Intervention was not performed. Past Med Surg Social Fam HX - Past Medical History Attestation: Yes The following information was validated with the patient. Medical history: arthritis, COPD, coronary artery disease, GERD, hypertension, myocardial infarction, other Psychiatric history: no psych history - Past Surgical History Surgical History: appendectomy, coronary bypass (CABG) - Social History Smoking Status: Former smoker Alcohol use: none Drug use: none Medications and Allergies Aspirin 81 mg PO DAILY 04/04/16 [History] Benazepril HCl [Lotensin] 40 mg PO BID 04/04/16 [History] Carvedilol 12.5 mg PO BID 04/04/16 [History] Clopidogrel [Plavix] 75 mg PO DAILY 04/04/16 [History] Famotidine [Heartburn Prevention] 20 mg PO BID 04/04/16 [History] Furosemide [Lasix] 20 mg PO DAILY 04/04/16 [History] Nitroglycerin [Nitrostat] 0.4 mg SL AD PRN 04/04/16 [History] amLODIPine [Norvasc] 5 mg PO DAILY 04/04/16 [History] [place]-3/Dha/Epa/Fish Oil [Fish Oil 1,000 mg Softgel] 1 tab PO DAILY 11/11/16 [ History] Cholecalciferol (Vitamin D3) [Vitamin D] 5,000 unit PO DAILY 09/29/17 [History] Vitamin E 400 unit PO DAILY 09/29/17 [History] 3 Allergy/AdvReac Type Severity Reaction Status Date / Time [id number] Reductase Allergy Rash Verified 09/29/17 06:58 Inhibitor [Statins] Penicillins AdvReac Nausea Verified 09/29/17 06:58 steroids AdvReac Irritable Uncoded 11/11/16 07:41 All Systems Review: The remainder of the systems were reviewed and are negative - Cardiovascular Cardiovascular: as per HPI Physical Examination Vital Signs, Last 4 Hours Temp Pulse Resp BP Pulse Ox 10/01/17 08:36 95 10/01/17 08:02 98.0 F 60 18 142/73 95 General: Conversant, No Apparent Distress HEENT: Atraumatic, Normocephaly, Mucus Membranes Moist Neck: No JVD Cardiac: Reg Rate and Rhythm, Normal S1 and S2, No Murmur Lungs: Normal Breath Sounds, No Wheeze, Rales, Rhonchi Neuro: Alert and responsive, No focal deficits noted Abdomen: Soft, Non-Tender, Other (normal bowel sounds) Extremities: No Edema, Other (diminished right pedal pulse) Results 10/01/17 05:02 10/01/17 05:02 Lab Results 09/30/17 09/30/17 10/01/17 13:23 18:57 05:02 WBC 6.4 Hgb 13.0 Hct 39.9 Plt Count 233 APTT 68.9 H Sodium Potassium Chloride Carbon Dioxide BUN Creatinine Glucose Calcium Troponin I 0.03 10/01/17 05:02 WBC Hgb Hct Plt Count APTT Sodium 142 Potassium 3.5 Chloride 107 Carbon Dioxide 27 BUN 21 Creatinine 1.30 Glucose 111 H Calcium 9.0 Troponin I - Imaging and Cardiology Chest Xray: report reviewed Cardiac cath: report reviewed (10/2016) - EKG Interpretation EKG results cardiology: personally reviewed (ECG demonstrated sinus rhythm, right bundle branch block and nonspecific ST-T abnormalities without acute ischemic findings), other (Telemetry demonstrates average heart rate 56 bpm, no concerning dysrhythmia) Consult Discharge Plan - Plan Referrals: Fabby Parmar, LEATHER TOOLER [Primary Care Provider] -
--- NOTE | 2017-10-01 13:20 | Internal Med Progress Note ---
Date of Encounter: 10/01/17 Time of Encounter: 13:17 - Assessment and plan (1) Chest pain Current Visit: Yes Status: Acute Assessment and plan: Denied any more CP His trop peaked at @ 0.38 Now trended down No ischemic changes on EKG He does have intermittent CP for a while now He would get benefit with [facility] since he is high risk pt with tripple vessel disease Cont heparin gtt for now Cont ASA, Plavix, BB and ACEI Card started him on Imdur Dr. Escamilla will decide in the morning about [facility] after reviewing his previous Cath filims.. NPO after mid night Qualifiers: Chest pain type: precordial pain Qualified Code(s): R07.2 - Precordial pain (2) NSTEMI (non-ST elevated myocardial infarction) Current Visit: Yes Status: Acute (3) Coronary artery disease Current Visit: Yes Status: Acute Assessment and plan: Patient is known to have a coronary artery bypass graft surgery in year 1999. He underwent cardiac catheterization in 2017. There stents placed in his bypass graft resumed all home meds Qualifiers: Coronary Disease-Associated Artery/Lesion type: bypass graft [place] vs. transplanted heart: [place] heart Associated angina: with stable angina Qualified Code(s): I25.708 - Atherosclerosis of coronary artery bypass graft(s) , unspecified, with other forms of angina pectoris (4) Hypertension Current Visit: Yes Status: Acute Assessment and plan: stable with current meds resumed all home meds Qualifiers: Hypertension type: essential hypertension Qualified Code(s): I10 - Essential (primary) hypertension (5) DVT prophylaxis Current Visit: Yes Status: Acute Assessment and plan: on heparin gtt (6) COPD (chronic obstructive pulmonary disease) Current Visit: Yes Status: Acute Assessment and plan: chronic COPD. not in exacerbation. cont home INH regimen Qualifiers: COPD type: unspecified COPD Qualified Code(s): J44.9 - Chronic obstructive pulmonary disease, unspecified - Time Spent With Patient Total time spent is greater than 50% in coordination of care (as documented) at patient's floor/unit and/or counseling patient: - Subjective Interval history: Mr. Urban is a 76 year old male background history of hypertension, coronary artery disease, previous myocardial infarction, previous coronary artery bypass graft, underwent cardiac catheterization in 2017 showed tripple vessel disease, s/p CABG 2/4 patent bypass grafts pt now presented to ER y/d with Left side chest pain radiating to his shoulder and back. He did c/o intermittent CP lately from last 2-3 months. 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 Checked his serial troponin, which peaked at 0.38. Currently on Heparin gtt. No N/V. No SOB. He still have atypical intermittent chest discomfort. He denied any active CP now. - Constitutional Vitals: Temp Pulse Resp BP Pulse Ox 97.8 F 60 18 149/74 97 10/01/17 12:00 10/01/17 12:00 10/01/17 12:00 10/01/17 12:00 10/01/17 12:00 General appearance: Present: A&O X 3, pleasant, no acute distress, answers questions appropriately - Head Head exam: Present: atraumatic, normal inspection - Neck Neck exam general surgery: Present: supple - Respiratory Respiratory exam: Present: decreased breath sounds. Absent: rales, respiratory distress, rhonchi, wheezes - Cardiovascular Cardiovascular exam: Present: RRR, +S1, +S2. Absent: tachycardia - GI/Abdominal GI/Abdominal exam: Present: normal bowel sounds, soft. Absent: rebound, rigid, tenderness - Extremities Exam Extremities exam: Absent: calf tenderness, pedal edema, tenderness - Back Exam Back exam: Absent: CVA tenderness (L), CVA tenderness (R) - Psychiatric Psychiatric exam: Present: normal affect, normal mood - Skin Skin exam: Absent: rash Internal Medicine: Result - Labs CBC & Chem 7: 10/01/17 05:02 10/01/17 05:02 Labs: Short CBC 10/01/17 Range/Units 05:02 WBC 6.4 (4.3-11.1) K/mcL Hgb 13.0 (12.9-16.9) g/dL Hct 39.9 (37.5-50.1) % Plt Count 233 (140-400) K/mcL Neutrophils # 3.3 (1.6-8.9) K/mcL BMP 10/01/17 05:02 Sodium 142 Potassium 3.5 Chloride 107 Carbon Dioxide 27 BUN 21 Creatinine 1.30 Glucose 111 H Calcium 9.0 Cardiac Enzymes 09/30/17 Range/Units 18:57 Troponin I 0.03 (< 0.04) ng/mL - ABG Interpretation ABG results: PT/INR, D-dimer PT 12.1 Seconds (9.4-12.1) 09/30/17 07:14 Consult Discharge Plan - Plan Referrals: Fabby Parmar, PROJECTION PRINTER [Primary Care Provider] -
[2017-10-01] MEDS: amLODIPine 5 MG TABLET PO SCH (21:16)
[2017-10-02] MEDS: Heparin 25,000 UNIT/500 ML D5W 25,000 UNIT/500 ML BAG IVC SCH (01:25)
[2017-10-02 06:43] VITALS: BP 138/66
[2017-10-02] MEDS: Lisinopril 20 MG TABLET PO SCH (07:44)
[2017-10-02] MEDS: Famotidine 20 MG TABLET PO SCH (07:44)
[2017-10-02] MEDS: Cholecalciferol (D-3) 1,000 UNIT TABLET PO SCH (07:44)
[2017-10-02] MEDS: Furosemide 20 MG TABLET PO SCH (07:44)
[2017-10-02] MEDS: Aspirin 81 MG TAB.CHEW PO SCH (07:48)
[2017-10-02] MEDS ORDERED: Isosorbide MONOnitrate (24 HR) 30 MG TAB.ER.24H PO SCH ×2 (09:00→10:30)
[2017-10-02] MEDS ORDERED: Isosorbide MONOnitrate (24 HR) 30 MG TAB.ER.24H PO ONE (10:30)
--- NOTE | 2017-10-02 10:41 | Cardiology Progress Note ---
Date of Encounter: 10/02/17 Time of Encounter: 10:20 Assessment and Plan (1) Elevated troponin Current Visit: Yes Status: Acute Mild troponin elevation, troponin negative x3, 0.38, 0.04, 0.03. Reports symptoms somewhat similar to prior NC, however more mild. No ECG changes noted. Known severe CAD with 2/4 patent bypass grafts, medical therapy has been recommended. TTE this admission shows preserved LVEF 65-70%. Reviewed [facility] (October 2016) films with Dr. Giron, medical therapy recommended. Patient is agreeable to trial of nitrates. Otherwise continue current CV medications including asa, statin, and BB. No further recommendations as inpatient. Will sign-off. Will coordinate outpatient f/u with Dr. Gtz. (2) Coronary artery disease Current Visit: Yes Status: Chronic Plan as above. Continue asa, statin, BB. Imdur added. Qualifiers: Coronary Disease-Associated Artery/Lesion type: bypass graft [place] vs. transplanted heart: [place] heart Associated angina: with stable angina Qualified Code(s): I25.708 - Atherosclerosis of coronary artery bypass graft(s) , unspecified, with other forms of angina pectoris (3) Hypertension Current Visit: Yes Status: Acute Control improved with addition of nitrates. Qualifiers: Hypertension type: essential hypertension Qualified Code(s): I10 - Essential (primary) hypertension Discussion w patient/family: The assessment and plan as outlined above was discussed with the patient and/or family members who expressed understanding and agreement. All questions were answered. Thank you for involving us in the care of your patient. Please call with any questions. The patient will be discussed and reviewed with Dr. Giron; changes to be made accordingly. Subjective Principal diagnosis: Elevated troponin Interval history: Seen and examined. No recurrent chest pain since admission. Discussed presenting symptoms--reports similar to angina, however only "mild." He feels as though he may have "over did it" this past week with landscaping and installing a beam in garage. [facility] films reviewed with Dr. Giron. Objective Vital Signs, Last 4 Hours Temp Pulse Resp BP Pulse Ox 10/02/17 06:41 97.7 F 59 16 138/66 98 General: Conversant, No Apparent Distress HEENT: Atraumatic, Normocephaly, Mucus Membranes Moist Neck: No JVD Cardiac: Reg Rate and Rhythm, Normal S1 and S2 Lungs: Normal Breath Sounds Neuro: Alert and responsive Abdomen: Soft Skin: No rashes noted on visualized skin Musculoskeletal: No Chest Wall Tenderness Extremities: No Edema, Normal Pulses Results 10/01/17 05:02 10/01/17 05:02 Lab Results 10/01/17 10/01/17 10/02/17 13:31 20:17 09:52 APTT 54.0 H 77.1 H 83.8 H Active Medications Acetaminophen (Tylenol) 650 mg PO Q6HR PRN PRN Reason: Mild Pain/Fever Stop: 03/31/18 06:37 Amlodipine Besylate (Norvasc) 5 mg PO HS LARISA PRN Reason: Protocol Stop: 03/31/18 21:01 Last Admin: 10/01/17 21:16 Dose: 5 mg Aspirin (Aspirin) 81 mg PO DAILY LARISA Stop: 03/31/18 09:01 Last Admin: 10/02/17 07:48 Dose: 81 mg Carvedilol (Coreg) 12.5 mg PO BIDWM LARISA PRN Reason: Protocol Stop: 03/31/18 08:20 Last Admin: 10/02/17 07:44 Dose: 12.5 mg Famotidine (Pepcid) 20 mg PO DAILY LARISA PRN Reason: Protocol Stop: 03/31/18 09:01 Last Admin: 10/02/17 07:44 Dose: 20 mg Furosemide (Lasix) 20 mg PO DAILY LARISA Stop: 03/31/18 09:01 Last Admin: 10/02/17 07:44 Dose: 20 mg Isosorbide Mononitrate (Imdur) 60 mg PO DAILY LARISA Stop: 04/04/18 09:01 Lisinopril (Zestril) 40 mg PO DAILY LARISA Stop: 04/01/18 09:01 Last Admin: 10/02/17 07:44 Dose: 40 mg Naloxone HCl (Narcan) 0.4 mg IVP Q2MIN PRN PRN Reason: SEE COMMENTS Stop: 03/31/18 08:07 Nitroglycerin (Nitroglycerin) 0.4 mg SL AD PRN PRN Reason: Chest Pain Stop: 03/31/18 08:09 Vitamin D (Vitamin D) 1,000 unit PO DAILY LARISA Stop: 03/31/18 09:01 Last Admin: 10/02/17 07:44 Dose: 1,000 unit Vitamin E (Vitamin E) 400 unit PO DAILY LARISA Stop: 03/31/18 09:01 Last Admin: 10/02/17 07:44 Dose: 400 unit - Imaging and Cardiology Echo: report reviewed Cardiac cath: report reviewed Other Results: 12 hour tele: avg HR=57 SB. No significant event noted. - EKG Interpretation EKG results cardiology: personally reviewed Consult Discharge Plan - Plan Referrals: Fabby Parmar, GRADES 1 THRU 6 VISITING TEACHER [Primary Care Provider] -
--- NOTE | 2017-10-02 11:10 | Discharge Summary ---
- NOTES TO OUTPATIENT PROVIDER Notes to Outpatient Provider: f/u with PCP in one week. f/u with Cardiology Dr. Gtz in 1-2 weeks. 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 Associated angina: with stable angina Qualified Code(s): I25.708 - Atherosclerosis of coronary artery bypass graft(s) , unspecified, with other forms of angina pectoris (4) Hypertension Priority: Secondary Status: Acute Qualifiers: Hypertension type: essential hypertension Qualified Code(s): I10 - Essential (primary) hypertension (5) DVT prophylaxis Priority: Secondary Status: Acute (6) COPD (chronic obstructive pulmonary disease) Priority: Secondary Status: Acute Qualifiers: COPD type: unspecified COPD Qualified Code(s): J44.9 - Chronic obstructive pulmonary disease, unspecified Hospital course: Mr. Urban is a 76 year old male background history of hypertension, coronary artery disease, previous myocardial infarction, previous coronary artery bypass graft, underwent cardiac catheterization in 2017 showed tripple vessel disease, s/p CABG 2/4 patent bypass grafts pt now presented to ER y/d with Left side chest pain radiating to his shoulder and back. He did c/o intermittent CP lately from last 2-3 months. He was admitted in the hospital and placed him on quality assurance monitor final. Checked his serial troponin, which peaked at 0.38. Pt remained chest pain free. he was placed on heparin gtt. Pt was evaluated by cardiology and recommend medical management with Imdur, ASA, Plavix, BB and ACEI. Pt was not able to tolerate statins. Also recommend pt to f/u with Card as an out pt. So will d/c him home in stable condition today. - Time Spent with Patient Total time spent providing and/or coordinating discharge services: - Discharge Medications Prescriptions: Isosorbide MONOnitrate (24 HR) [Imdur] 60 mg PO DAILY #30 tab.er.24h Home Medications: Aspirin 81 mg PO DAILY 04/04/16 [History] Benazepril HCl [Lotensin] 40 mg PO BID 04/04/16 [History] Carvedilol 12.5 mg PO BID 04/04/16 [History] Clopidogrel [Plavix] 75 mg PO DAILY 04/04/16 [History] Famotidine [Heartburn Prevention] 20 mg PO BID 04/04/16 [History] Furosemide [Lasix] 20 mg PO DAILY 04/04/16 [History] Nitroglycerin [Nitrostat] 0.4 mg SL AD PRN 04/04/16 [History] amLODIPine [Norvasc] 5 mg PO DAILY 04/04/16 [History] Harris-3/Dha/Epa/Fish Oil [Fish Oil 1,000 mg Softgel] 1 tab PO DAILY 11/11/16 [ History] Cholecalciferol (Vitamin D3) [Vitamin D3] 5,000 unit PO DAILY 09/29/17 [History] Vitamin E 400 unit PO DAILY 09/29/17 [History] Isosorbide MONOnitrate (24 HR) [Imdur] 60 mg PO DAILY #30 tab.er.24h 10/02/17 [ Rx] Allergies/Adverse Reactions: 3 Allergy/AdvReac Type Severity Reaction Status Date / Time Fsftmdo-Xep-Ips Reductase Allergy Rash Verified 09/29/17 06:58 Inhibitor [Statins] Penicillins AdvReac Nausea Verified 09/29/17 06:58 steroids AdvReac Irritable Uncoded 11/11/16 07:41 Date of admission: 09/30/17 09:27 Primary care physician: Fabby Parmar CNP Consults: 09/30/17 16:26 Consult to Cardiology [CONS] Routine Comment: Consulting Provider: Cardiology Sayda Reason for Consult: elevated troponins Call Completed: Yes - Constitutional Vitals: Temp Pulse Resp BP Pulse Ox 97.7 F 59 16 138/66 98 10/02/17 06:41 10/02/17 06:41 10/02/17 06:41 10/02/17 06:41 10/02/17 06:41 General appearance: Present: A&O X 3, pleasant, no acute distress, answers questions appropriately - Head Head exam: Present: atraumatic, normal inspection - Respiratory Respiratory exam: Present: CTAB. Absent: accessory muscle use, rales, rhonchi, wheezes - Cardiovascular Cardiovascular exam: Present: RRR, +S1, +S2. Absent: diastolic murmur, gallop, rubs, systolic murmur - Extremities Exam Extremities exam: Absent: calf tenderness, pedal edema, tenderness - Back Exam Back exam: Absent: CVA tenderness (L), CVA tenderness (R) - Patient Status Disposition: Home, Self-Care Condition: Good Overall status at discharge: patient is back to baseline - Discharge Instructions Instructions: Isosorbide Dinitrate (By mouth) Follow Up With: Fabby Parmar CNP [Primary Care Provider] - Malia Gtz MD [Partnered Physician] - - Diet and Activity Activity: increase activity as tolerated Diet: low salt diet
[2017-10-03] MEDS ORDERED: Isosorbide MONOnitrate (24 HR) 60 MG TAB.ER.24H PO SCH (09:00)
== END 2017-10-02 11:31 | disposition home or self-care (01) | DRG 282 ==
LOC: EMEROO 05:00 → 2ANU 05:00
PROVIDERS: ADMIT Internal Medicine; ATTEND Family Medicine

== ENCOUNTER 2021-05-25 17:45 | Inpatient (IN) ==
[2021-05-25 18:57] LABS: Basophils # 0.1 K/mcL (0.0-0.2); Basophils % 0.5 %; Eosinophils # 0.4 K/mcL (0.0-0.6); Eosinophils % 2.1 %; Hematocrit 35.5 % (37.5-50.1); Hemoglobin 11.5 g/dL (12.9-16.9); Immature Granulocytes % 1.4 % (0-4); Lymphocytes # 2.1 K/mcL (0.6-4.6); Lymphocytes % 10.4 %; Mean Corpuscular HGB Conc 32.4 g/dL (31.6-35.5); Mean Corpuscular Volume 95.7 fL (83.0-100.0); Mean Platelet Volume 10.2 fL (9.4-12.4); Monocytes # 1.1 K/mcL (0.0-1.3); Monocytes % 5.4 %; Neutrophils # 16.4 K/mcL (1.6-8.9); Platelet Count 739 K/mcL (140-400); Red Blood Count 3.71 M/mcL (4.19-5.50); Red Cell Distribution Width 13.2 % (11.5-14.5); Segmented Neutrophils % 80.2 %; White Blood Count 20.5 K/mcL (4.3-11.1)
[2021-05-25 19:17] LABS: Alanine Aminotransferase 44 Units/L (7-52); Albumin 3.6 g/dL (3.5-5.7); Albumin/Globulin Ratio 1.1 (1.1-2.2); Alkaline Phosphatase 95 Units/L (34-104); Amylase 89 Units/L (29-103); Aspartate Amino Transferase 23 Units/L (13-39); BUN/Creatinine Ratio 20 (6-26); Bilirubin,Direct 0.1 mg/dL (0.0-0.2); Bilirubin,Indirect 0.7 mg/dL (0.0-1.0); Bilirubin,Total 0.8 mg/dL (0.3-1.0); Blood Urea Nitrogen 27 mg/dL (8-23); Calcium 9.1 mg/dL (8.6-10.3); Carbon Dioxide 23 mEq/L (23-29); Chloride 107 mEq/L (98-107); Globulin 3.3 g/dL (2.4-3.5); Glucose 145 mg/dL (70-105); Lipase 102 Units/L (11-82); Osmolality,Calculated 300 (280-300); Potassium 3.7 mEq/L (3.5-5.1); Sodium 141 mEq/L (136-145); Total Protein 6.9 g/dL (6.4-8.9); eGFR For African Americans > 60 (> 60); eGFR For Non-African Americans 52 (> 60)
[2021-05-25] MEDS ORDERED: Isovue-370 500 ML BOTTLE IVP ONE (19:28)
[2021-05-25] MEDS ORDERED: *HR* FentaNYL (PF) 100 MCG/2 ML VIAL IVP ONE (19:38)
[2021-05-25] MEDS ORDERED: Ondansetron 4 MG/2 ML VIAL IVP ONE (19:38)
[2021-05-25 21:35] LABS: Troponin I 0.03 ng/mL (< 0.04)
[2021-05-25] MEDS ORDERED: *HR* Enoxaparin 80 MG/0.8 ML SYRINGE SQ STA (22:36)
[2021-05-25 23:01] LABS: Bilirubin,Urine Negative (Negative); Blood,Urine Negative (Negative); Clarity,Urine Clear (Clear); Color,Urine Yellow (Yellow); Glucose,Urine (UA) Normal (Normal); Ketones,Urine Negative (Negative); Leukocyte Esterase,Urine Negative (Negative); Nitrite,Urine Negative (Negative); Protein,Urine Trace mg/dL (Neg-Trace); Specific Gravity,Urine > 1.030 (1.010-1.025); Urobilinogen,Urine Normal (Normal)
[2021-05-25] MEDS ORDERED: CeFAZolin 2,000 MG/120 ML BAG IVPB ONE (23:17)
[2021-05-25] MEDS ORDERED: MetroNIDAZOLE 500 MG/100 ML 500 MG/100 ML BAG IVPB ONE (23:17)
[2021-05-25] MEDS ORDERED: Ondansetron 4 MG/2 ML VIAL IVP PRN (23:31)
[2021-05-25] MEDS ORDERED: Naloxone 0.4 MG/ML INJ IVP PRN (23:31)
[2021-05-25] MEDS ORDERED: Melatonin 3 MG TABLET PO PRN (23:31)
[2021-05-26] MEDS ORDERED: Ringers Solution, Lactated 1,000 ML IVC SCH (01:00)
[2021-05-26] MEDS ORDERED: Saliva Stimulant 44.3ml BOTTLE PO PRN (01:24)
[2021-05-26] MEDS ORDERED: Pantoprazole 40 MG VIAL IVP SCH (01:30)
[2021-05-26 03:51] LABS: Influenza A PCR Negative (Negative); Influenza B PCR Negative (Negative); Resp. Syncytial Virus PCR Negative (Negative)
[2021-05-26 03:52] LABS: SARS-CoV-2 by PCR (In House) Negative (Negative)
[2021-05-26 04:45] LABS: Basophils # 0.1 K/mcL (0.0-0.2); Basophils % 0.6 %; Eosinophils # 0.4 K/mcL (0.0-0.6); Eosinophils % 2.2 %; Immature Granulocytes % 1.2 % (0-4); Lymphocytes # 2.2 K/mcL (0.6-4.6); Lymphocytes % 13.7 %; Mean Corpuscular HGB Conc 32.7 g/dL (31.6-35.5); Mean Platelet Volume 10.3 fL (9.4-12.4); Monocytes # 0.9 K/mcL (0.0-1.3); Monocytes % 5.7 %; Neutrophils # 12.1 K/mcL (1.6-8.9); Platelet Count 587 K/mcL (140-400); Red Blood Count 3.06 M/mcL (4.19-5.50); Red Cell Distribution Width 13.3 % (11.5-14.5); Segmented Neutrophils % 76.6 %; White Blood Count 15.7 K/mcL (4.3-11.1)
[2021-05-26 04:57] LABS: Hemoglobin 9.8 g/dL (12.9-16.9)
[2021-05-26 05:01] LABS: INR 1.4; Prothrombin Time 15.1 Seconds (9.4-12.1)
[2021-05-26 05:10] LABS: BUN/Creatinine Ratio 23 (6-26); Blood Urea Nitrogen 24 mg/dL (8-23); Calcium 8.1 mg/dL (8.6-10.3); Carbon Dioxide 23 mEq/L (23-29); Chloride 109 mEq/L (98-107); Glucose 112 mg/dL (70-105); Magnesium 1.9 mg/dL (1.6-2.6); Osmolality,Calculated 297 (280-300); Phosphorous 3.6 mg/dL (2.7-4.5); Potassium 3.2 mEq/L (3.5-5.1); Sodium 141 mEq/L (136-145); eGFR For African Americans > 60 (> 60); eGFR For Non-African Americans > 60 (> 60)
[2021-05-26] MEDS ORDERED: MetroNIDAZOLE 500 MG/100 ML 500 MG/100 ML BAG IVPB SCH (08:00)
[2021-05-26 09:27] LABS: Hematocrit 32.7 % (37.5-50.1)
[2021-05-26] MEDS ORDERED: *HR* Heparin 5,000 UNIT/ML VIAL IVP PRN ×2 (10:37)
[2021-05-26] MEDS ORDERED: Heparin 25,000 UNIT/250 ML 25,000 UNIT/250 ML IV.SOLN IVC SCH (10:45)
[2021-05-26] MEDS: Piperacillin/Tazobactam 3.375 GM in 0.9 % Sodium Chloride Mini Bag 100 ML IVPB SCH (16:36)
[2021-05-26] MEDS: Pantoprazole 40 MG VIAL IVP SCH (16:36)
[2021-05-26 17:07] LABS: Hematocrit 31.4 % (37.5-50.1); Hemoglobin 10.2 g/dL (12.9-16.9)
[2021-05-27 02:16] LABS: Hematocrit 29.8 % (37.5-50.1); Hemoglobin 9.4 g/dL (12.9-16.9); Mean Corpuscular HGB Conc 31.5 g/dL (31.6-35.5); Mean Corpuscular Hemoglobin 30.8 pg (28.0-33.3); Mean Corpuscular Volume 97.7 fL (83.0-100.0); Mean Platelet Volume 10.4 fL (9.4-12.4); Platelet Count 530 K/mcL (140-400); Red Blood Count 3.05 M/mcL (4.19-5.50); Red Cell Distribution Width 13.2 % (11.5-14.5); White Blood Count 10.7 K/mcL (4.3-11.1)
[2021-05-27 02:26] LABS: Potassium 3.2 mEq/L (3.5-5.1); Sodium 141 mEq/L (136-145)
[2021-05-27 02:27] LABS: BUN/Creatinine Ratio 22 (6-26); Blood Urea Nitrogen 23 mg/dL (8-23); Calcium 8.2 mg/dL (8.6-10.3); Carbon Dioxide 25 mEq/L (23-29); Chloride 109 mEq/L (98-107); Glucose 90 mg/dL (70-105); Osmolality,Calculated 295 (280-300); eGFR For African Americans > 60 (> 60); eGFR For Non-African Americans > 60 (> 60)
[2021-05-27] MEDS: Pantoprazole 40 MG VIAL IVP SCH (06:20)
[2021-05-27] MEDS: Piperacillin/Tazobactam 3.375 GM in 0.9 % Sodium Chloride Mini Bag 100 ML IVPB SCH ×3 (06:21→17:23)
[2021-05-27] MEDS ORDERED: lisinopriL 20 MG TABLET PO SCH (09:00)
[2021-05-27] MEDS: Furosemide 20 MG TABLET PO SCH (09:10)
[2021-05-27] MEDS: Isosorbide MONOnitrate (24 HR) 60 MG TAB.ER.24H PO SCH (09:10)
[2021-05-27] MEDS: amLODIPine 5 MG TABLET PO SCH (09:10)
[2021-05-27] MEDS: carvediloL 6.25 MG TABLET PO SCH ×2 (09:11→17:26)
[2021-05-27] MEDS ORDERED: Lidocaine -MPF 2% 5 ML VIAL ONE (12:47)
[2021-05-27] MEDS ORDERED: *HR* Heparin 5,000 UNIT/ML VIAL IVP ONE (16:25)
[2021-05-27] MEDS ORDERED: *HR* Heparin 5,000 UNIT/ML VIAL IVP PRN ×2 (16:25)
[2021-05-27] MEDS ORDERED: Heparin 25,000UNIT/250ML 1/2NS 25,000 UNIT/250 ML IV.SOLN IVC SCH (16:30)
[2021-05-27] MEDS ORDERED: Sucralfate 1 GM TABLET PO SCH (21:00)
[2021-05-28 00:45] LABS: Hematocrit 33.6 % (37.5-50.1); Hemoglobin 10.6 g/dL (12.9-16.9); Mean Corpuscular HGB Conc 31.5 g/dL (31.6-35.5); Mean Corpuscular Hemoglobin 30.6 pg (28.0-33.3); Mean Corpuscular Volume 97.1 fL (83.0-100.0); Mean Platelet Volume 10.3 fL (9.4-12.4); Platelet Count 628 K/mcL (140-400); Red Blood Count 3.46 M/mcL (4.19-5.50); Red Cell Distribution Width 13.3 % (11.5-14.5)
[2021-05-28 01:03] LABS: BUN/Creatinine Ratio 18 (6-26); Blood Urea Nitrogen 21 mg/dL (8-23); Calcium 8.5 mg/dL (8.6-10.3); Carbon Dioxide 23 mEq/L (23-29); Chloride 108 mEq/L (98-107); Glucose 112 mg/dL (70-105); Osmolality,Calculated 296 (280-300); Potassium 3.2 mEq/L (3.5-5.1); Sodium 141 mEq/L (136-145); eGFR For African Americans > 60 (> 60); eGFR For Non-African Americans > 60 (> 60)
[2021-05-28] MEDS: Piperacillin/Tazobactam 3.375 GM in 0.9 % Sodium Chloride Mini Bag 100 ML IVPB SCH ×2 (02:53→02:58)
[2021-05-28] MEDS: amLODIPine 5 MG TABLET PO SCH (07:25)
[2021-05-28] MEDS: carvediloL 6.25 MG TABLET PO SCH (07:25)
[2021-05-28] MEDS: Furosemide 20 MG TABLET PO SCH (07:25)
[2021-05-28] MEDS: Isosorbide MONOnitrate (24 HR) 60 MG TAB.ER.24H PO SCH (07:25)
[2021-05-28] MEDS ORDERED: lisinopriL 20 MG TABLET PO SCH (09:00)
[2021-05-28] MEDS ORDERED: Apixaban 5 MG TABLET PO SCH (10:00)
[2021-05-28 10:56] VITALS: BP 133/54; PULSE 63; TEMP 97.8; O2SAT 97
[2021-05-28] MEDS ORDERED: Piperacillin/Tazobactam 3.375 GM in 0.9 % Sodium Chloride Mini Bag 100 ML IVPB SCH (11:00)
[2021-06-04] MEDS ORDERED: Apixaban 5 MG TABLET PO SCH (09:00)
== END 2021-05-28 13:30 | disposition home health service (06) | DRG 444 ==
LOC: 2ANU 17:45 → EMEROOARM 17:45 → SUATTDRO 23:45 → 2ANU 05-26 00:49
PROVIDERS: ADMIT Internal Medicine; ATTEND Family Medicine
PROC: ENDOEBX (2021-05-27 13:20)